=== PATIENT | female | born 1965 | race Caucasian/White ===

== ENCOUNTER → 2016-10-06 | Outpatient (CLI) | payer BC ==
[~2016-10-06] MED LIST: ACIP20TA6 PO; ERGO1CAP10 PO; TRAZ100T4 PO
[2016-10-06 14:14] LABS: HEMATOCRIT 43.2 % (35.0-46.0); MEAN CELL VOLUME 86.3 FL (80.0-100.0); MEAN CORPUSCULAR HEMOGLOBIN 30.3 PG (27.0-34.0); MEAN CORPUSCULAR HGB CONC 35.1 % (32.0-36.0); PLATELET COUNT 288 TH/MM3 (150-450); RED BLOOD COUNT 5.01 MIL/MM3 (4.00-5.30); REVIEW FLAG FINAL; WHITE BLOOD COUNT 8.8 TH/MM3 (4.0-11.0)
--- NOTE | 2016-10-06 15:53 | EKG ---
Date Performed: 10/06/2016 Time Performed: 13:45:19 PTAGE: 51 years EKG: Sinus rhythm POSSIBLE LEFT ATRIAL ENLARGEMENT BORDERLINE ECG NO PREVIOUS TRACING DOCTOR: Jeffery Ac Interpretating Date/Time 10/06/2016 15:53:05
== END ==
LOC: CPRE 13:17
PROVIDERS: ATTEND Specialist
DX: Z01.810 Encounter for preprocedural cardiovascular examination (principal); Z01.812 Encounter for preprocedural laboratory examination; R94.31 Abnormal electrocardiogram [ECG] [EKG]
CPT/HCPCS: 36415; 85027; 93005

== ENCOUNTER → 2016-10-08 | Day surgery (SDC) | payer BC ==
--- NOTE | 2016-10-07 19:35 | MH ---
cc: VINCENT WHATLEY DATE OF ADMISSION: 10/08/2016 HISTORY OF PRESENT ILLNESS A 51-year-old female with chronic sinusitis and nasal obstruction for open septal reconstruction, bilateral inferior turbinectomies, bilateral endoscopic sinusotomies. PAST MEDICAL HISTORY Unremarkable. PAST SURGICAL HISTORY Unremarkable. REVIEW OF SYSTEMS/FAMILY HISTORY/SOCIAL HISTORY Unremarkable. PHYSICAL EXAMINATION GENERAL: A well-appearing patient, no acute distress is noted. HEENT: Reveals significant septal deviation, turbinate hypertrophy, mucopurulent secretion. LUNGS: Clear. HEART: Regular rate and rhythm. ABDOMEN: Soft and nontender. EXTREMITIES: Without cyanosis, clubbing or edema. NEUROLOGIC: Alert, oriented, nonfocal neurologic exam. IMPRESSION AND PLAN A patient with chronic sinusitis and nasal obstruction for nasal sinus surgery. Instructed as to the method of surgery and possible complications and these include anesthetic complications such as cardiac difficulty, pulmonary difficulty, stroke, coma or even . Surgical complications such as bleeding, infection, risk of injury to orbit including blindness and diplopia, risk of injury to brain including CSF leak, meningitis, brain abscess or even . The patient appeared to agree, accept and understand above-mentioned risks and benefits. In addition no guarantees or warranties regarding outcome were given, we will therefore proceed with surgery. MD GRACE Timmons/AMRIK /6:49 PM /7:18 PM
[~2016-10-08] VITALS: Ht 152.4 cm; Wt 53.3 kg
[~2016-10-08] MED LIST changes: +*ONDANSETRON 4 MG VIAL PERIprocedural Use ONLY ONE; +*morphine SULFATE 8 MG/ML PERIprocedure ONLY ONE; +ACETAMINOPHEN/HYDROcodone 325 MG/7.5 MG TAB PO PRN; +BALANCED SALT SOLN OPHT IRRIG 15 ML BTL ONE; +DO NOT ADM ANY ANTICOAGULANT DRUGS XX PRN; +EPINEPHrine HCL (1:1000) 1 MG/ML VIAL ONE; +EPINEPHrine HCL (1:1000) 30 MG/30 ML VIAL ONE; +INSULIN HUMAN REGULAR 1,000 UNITS/10 ML VIAL SQ PRN; +LACTATED RINGER'S 1000 ML INJ 1,000 ML IV ONE; +LACTATED RINGER'S 1000 ML IV SCH; +LIDOCAINE 1%/EPINEPHrine 1:100,000 SOLN 20 ML VIAL ONE; +METOPROLOL TARTRATE 25 MG TAB PO PRN; +MIDAZOLAM HCL 2 MG/2 ML VIAL ONE; +MORPHINE SULFATE 4 MG/ML INJ IV PRN; +NEOSTIGMINE 3 MG/3 ML SYR IV ONE; +ONDANSETRON HCL 4 MG/2 ML VIAL IV PUSH ONE; +ONDANSETRON HCL 4 MG/2 ML VIAL IV PUSH PRN; +PROPOFOL 200 MG/20 ML AMP IV ONE; +SODIUM CHLORID 0.9% 500 ML IV SCH; +fentaNYL CITRATE 250 MCG/5 ML AMP ONE
[2016-10-08 07:23] VITALS: BP 117/67; PULSE 68; RESP 16; TEMP 98.1; O2SAT 96
[2016-10-08 07:56] LABS: AUTOMATED NEUTROPHIL # 7.4 TH/MM3 (1.8-7.7); BASOPHIL % 0.4 % (0.0-2.0); EOSINOPHIL # 0.2 TH/MM3 (0-0.4); EOSINOPHIL % 2.2 % (0.0-4.0); HEMATOCRIT 40.2 % (35.0-46.0); HEMO FLAGS DIFF FINAL; LYMPH % 19.2 % (9.0-44.0); MEAN CELL VOLUME 86.2 FL (80.0-100.0); MEAN CORPUSCULAR HGB CONC 34.8 % (32.0-36.0); MONO % 7.3 % (0.0-8.0); NEUT % 70.9 % (16.0-70.0); PLATELET COUNT 251 TH/MM3 (150-450); RED BLOOD COUNT 4.66 MIL/MM3 (4.00-5.30); RED CELL DISTRIBUTION WIDTH 14.2 % (11.6-17.2); WHITE BLOOD COUNT 10.5 TH/MM3 (4.0-11.0)
[2016-10-08 12:24] VITALS: BP 100/64; PULSE 50; RESP 16; TEMP 97; O2SAT 99
--- NOTE | 2016-10-17 06:55 | MP ---
cc: VINCENT WHATLEY DATE OF SURGERY: 10/08/2016 PREOPERATIVE DIAGNOSIS Nasal obstruction, chronic sinusitis. POSTOPERATIVE DIAGNOSIS Nasal obstruction, chronic sinusitis. PROCEDURE 1. Open septal reconstruction. 2. Left endoscopic frontal sinusotomy. 3. Right endoscopic frontal sinusotomy. 4. Left endoscopic anterior posterior ethmoidectomy. 5. Right endoscopic anterior posterior ethmoidectomy. 6. Left endoscopic maxillary antrostomy with removal of tissue. 7. Right endoscopic maxillary antrostomy with removal of tissue. 8. Left endoscopic sphenoidotomy with removal of tissue. 9. Right endoscopic sphenoidotomy with removal of tissue. 10.Left and right inferior turbinectomy, submucous resection. ANESTHESIA General. ESTIMATED BLOOD LOSS Less than 50 cc. COMPLICATIONS No complications. OPERATING SURGEON Dr. Whatley OPERATION Prepped and draped usual fashion. 1% Xylocaine, 1:100,000 epinephrine injected into nasal septum, inferior turbinates, middle meatus, superior meatus bilaterally. 1:1000 adrenaline soaked pledgets were placed and then removed. Under endoscopic visualization and the balloon apparatus frontal sinus recess was entered. The light confirmed. The balloon inflated in the frontal sinus ostium to 8 atmospheres on the right side and inflated in a similar fashion on the left side. Once this was achieved the balloon apparatus was used to create a natural opening into the antrum on the right side under endoscopic visualization, on the left side under endoscopic visualization, also into the sphenoid bilaterally under endoscopic visualization. Once this was achieved the microdebrider was then taken and uncinate process was taken down on the right side. Under endoscopic visualization the frontal sinus recess was dissected and tissue removed with the microdebrider. Anterior posterior ethmoidectomy performed with the microdebrider. The natural antrostomy which was already enlarged was enlarged further and polypoid tissue removed from it. A Telfa splint was placed in the middle meatus on the right side. The sphenoid recess was then entered with the microdebrider under endoscopic visualization and a portion of the sphenoid ostium enlarged and minimal tissue removed from the right sphenoid. Under endoscopic visualization on the left side the microdebrider was used to perform an uncinectomy. Frontal sinus recess dissection was performed with the microdebrider, anterior posterior ethmoidectomy with microdebrider under endoscopic visualization, taking care not to injure orbit or cranial roof in addition to sphenoid recess dissection and removal of minimal polypoid tissue from left sphenoid. The natural antrostomy identified and enlarged, and polypoid tissue removed from it. A Telfa splint was placed in the left middle meatus. Mucoperichondrial incision made right side of nose. Mucoperichondrial flap elevated on septum. Significant amount of bone and offending cartilage isolated. Cartilage removed with Barber forceps improving nasal airway and reducing nasal fracture. Mucoperichondrial flap re-approximated. Inferior turbinate reduced bilaterally under direct endoscopic visualization with multiple insertions of the Coblator probe with power level IV visibly decreasing turbinate size and improving nasal airway submucosally. No active bleeding noted. Patient tolerated the procedure well. MD GRACE iTmmons/MEHDI /5:31 PM /6:43 AM
== END | disposition home or self-care (01) ==
LOC: HSDC 06:15
PROVIDERS: ATTEND Specialist
DX: J32.9 Chronic sinusitis, unspecified (principal); J34.89 Other specified disorders of nose and nasal sinuses
CPT/HCPCS: 00160; 21335; 30140; 31255; 31267; 31276; 31288; 85025; J0171; J2250; J2270; J2405; J2710; J3010; J7120